=== PATIENT | female | born 1990 | race Two or more races ===

== ENCOUNTER 2020-08-30 19:33 | Emergency (ER) | payer MEDICAID, OTHER ==
[~2020-08-30] VITALS: Ht 165.1 cm; Wt 72.6 kg
[2020-08-30] MEDS ORDERED: LIDOCAINE 1% HCL (LOCAL ANESTH.) INJ 20ML MDV ONE (19:44)
[2020-08-30] MEDS ORDERED: HYDROcodone-ACET 10/325MG TAB PO ONE (20:30)
[2020-08-30] MEDS ORDERED: TETANUS-DIPTH-ACEL PERTUSSIS 0.5ML SYR Tdap IM ONE (20:45)
[2020-08-30] MEDS ORDERED: LIDOCAINE 1% HCL (LOCAL ANESTH.) INJ 20ML MDV IJ ONE (20:45)
[2020-08-30 22:18] VITALS: BP 124/81
== END 2020-08-30 23:01 | disposition short-term general hospital (02) ==
LOC: ER 19:33
DX: S61.512A Laceration without foreign body of left wrist, initial encounter (principal); T14.8XXA Other injury of unspecified body region, initial encounter; X58.XXXA Exposure to other specified factors, initial encounter; Y93.89 Activity, other specified; Y92.89 Other specified places as the place of occurrence of the external cause; Y99.8 Other external cause status
CPT/HCPCS: 73120; 90471; 90715; 99285; J2001